=== PATIENT | female | born 1990 | race American Indian/Alaskan Native ===

== ENCOUNTER 2021-06-15 00:31 | Emergency (ER) | payer MEDICAID ==
[2021-06-15 01:56] VITALS: BP 118/79
== END 2021-06-15 04:46 | disposition home or self-care (01) ==
LOC: ED 00:31
DX: M54.41 Lumbago with sciatica, right side (principal); M62.830 Muscle spasm of back; M62.838 Other muscle spasm; M54.2 Cervicalgia; R51.9 Headache, unspecified; Z79.899 Other long term (current) drug therapy
CPT/HCPCS: 99282